=== PATIENT | male | born 1960 | race Two or more races ===

== ENCOUNTER 2017-05-25 17:51 | Emergency (ER) | payer MEDICARE, OTHER ==
[~2017-05-25] VITALS: Ht 180.3 cm; Wt 81.6 kg
[2017-05-25 17:58] VITALS: BP 167/59
[2017-05-25] MEDS ORDERED: LORazepam Inj 2mg/ml 1ml IV ONE (18:00)
[2017-05-25] MEDS ORDERED: ABILIFY15 MG ORAL (18:25)
--- NOTE | 2017-05-25 18:40 | Emergency Room Report ---
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 However he endorses that he did both today. However he is supposed to go to [facility] detox tonight. We called them and they had gone to patient's house but he wasn't there. He states they will come here to pick him up. He he has not taken Abilify or wellbutrin in "months." Doesnt remember doses. Denies SI, HI, AVH. Allergies: Coded Allergies: SULFA (SULFONAMIDE ANTIBIOTICS) (Verified Allergy, Unknown, 05/25/17) Patient History Past Medical History: psych hx Past Surgical History: none Pertinent Family History: none Social History: Reports: drug use Immunizations: UTD Reviewed Nursing Documentation: PMH: Agreed, PSxH: Agreed Nursing Documentation-PMH Past Medical History: No History, Except For Hx Gastrointestinal Problems: No - HEP C History Of Psychiatric Problem: Yes - BI POLAR Review of Systems All Other Systems: negative except mentioned in HPI Physical Exam Vital Signs Date Time Temp Pulse Resp B/P (MAP) Pulse Ox O2 Delivery O2 Flow Rate FiO2 05/25/17 17:48 98.1 108 16 169/100 99 Room Air Sp02 EP Interpretation: reviewed, normal General Appearance: normal inspection, well appearing, no apparent distress, alert, GCS 15, non-toxic Head: normocephalic, atraumatic Eyes: bilateral eye PERRL, bilateral eye EOMI ENT: normal ENT inspection, hearing grossly normal, normal pharynx, no angioedema, normal voice, TMs + canals normal, uvula midline, moist mucus membranes Neck: normal inspection, full range of motion, supple, thyroid normal, no meningismus, no bony tend Respiratory: normal inspection, lungs clear, normal breath sounds, no rhonchi, no respiratory distress, no retraction, no accessory muscle use, no wheezing, speaking full sentences Cardiovascular #1: regular rate, rhythm, no edema, no JVD, normal capillary refill Gastrointestinal: normal inspection, normal bowel sounds, non tender, soft, no mass, no peritonitis, non-distended, no guarding, no hernia, no pulsatile mass Genitourinary: no CVA tenderness Musculoskeletal: normal inspection, back normal, normal range of motion, no calf tenderness, pelvis stable, Pia's Sign negative Neurologic: normal inspection, alert, oriented x3, responsive, integration consultant III-XII nml as tested, motor strength/tone normal, cerebellar normal, normal gait, speech normal Psychiatric: normal inspection, judgement/insight normal, mood/affect normal, no suicidal/homicidal ideation, no delusions, other - flight of ideas, manic Skin: normal inspection, normal color, no rash Lymphatic: normal inspection, no adenopathy Medical Decision Making Diagnostic Impression: Primary Impression: Behavioral change ER Course patient with acute 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 Disposition: Patient is to be discharged to home. Prescriptions given are abilify Patient is instructed to follow up with their primary care doctor within 5 days. Strict return precautions discussed with patient such as fever, chills, worsening/severe pain, nausea, vomiting, which may indicate severe illness. Patient verbalizes understanding and agrees with plan. Please note that this Emergency Department Report was dictated using [employer] machine operator helper technology software, occasionally this can lead to erroneous entry secondary to interpretation by the dictation equipment Last Vital Signs Date Time Temp Pulse Resp B/P (MAP) Pulse Ox O2 Delivery O2 Flow Rate FiO2 05/25/17 17:58 98.1 16 167/59 99 Room Air 05/25/17 17:48 108 Status: improved Disposition: HOME, SELF-CARE Condition: Improved Scripts Aripiprazole* (ABILIFY*) 15 Mg Tablet 15 MG ORAL DAILY for 30 Days, #30 TAB 0 Refills Prov: ANOOP ROLLE M.D. 05/25/17 Patient Instructions: Bipolar Disorder Additional Inst[facility] ANOOP ROLLE M.D. May 25, 2017 18:40
[2017-05-25 20:21] VITALS: BP 170/94
== END 2017-05-25 20:24 | disposition home or self-care (01) ==
LOC: EDBD 17:51 → EMR 19:30
DX: F91.9 Conduct disorder, unspecified (principal); F31.9 Bipolar disorder, unspecified; F15.10 Other stimulant abuse, uncomplicated; F10.10 Alcohol abuse, uncomplicated; Z88.2 Allergy status to sulfonamides
CPT/HCPCS: 96374; 99284